=== PATIENT | male | born 1950 | race Two or more races ===

== ENCOUNTER 2019-10-28 05:45 | Day surgery (SDC) | payer OTHER ==
[~2019-10-28 05:45] MED LIST: ARICEPT10 MG PO; DILANTIN100 MG PO; KEFLEX500 MG PO
[2019-10-28] MEDS ORDERED: ULTRAM50 MG PO (11:57)
[2019-10-28] MEDS ORDERED: TYLENOL ARTHRI650 MG PO (11:57)
[2019-10-28] MEDS ORDERED: MIRALAX17 GM PO (11:57)
== END 2019-10-28 16:00 | disposition home or self-care (01) ==
LOC: CIR.AMB 05:45
DX: K40.91 Unilateral inguinal hernia, without obstruction or gangrene, recurrent (principal); K42.9 Umbilical hernia without obstruction or gangrene

== ENCOUNTER 2021-12-25 08:00 | Outpatient (CLI) | payer OTHER ==
[~2021-12-25 08:00] MED LIST changes: +MIRALAX17 GM PO; +TYLENOL ARTHRI650 MG PO; +ULTRAM50 MG PO
== END 2021-12-25 08:30 | disposition home or self-care (01) ==
LOC: PPH VACUNA 08:00
PROVIDERS: ATTEND Emergency Medicine Pediatric Emergency Medicine
DX: Z23 Encounter for immunization (principal)